=== PATIENT | male | born 1965 | race Caucasian/White ===

== ENCOUNTER 2021-11-30 22:44 | Inpatient (IN) | payer SELFPAY ==
[~2021-11-30] VITALS: Ht 185.4 cm; Wt 87.1 kg
[2021-11-30] MEDS ORDERED: SODIUM CHLORIDE 0.9% 1,000 ML IV ONE (23:30)
[2021-11-30 23:53] LABS: BASOPHILS % 1.1 % (0.0-2.0); EOSINOPHILS % 9.4 % (0.0-5.0); HEMATOCRIT. 39.7 % (42.0-52.0); HEMOGLOBIN. 13.3 g/dL (14.0-18.0); LYMPHOCYTES % 21.8 % (20.0-50.0); MEAN CORPUSCULAR HEMOGLOBIN 30.1 pg (28.0-32.0); MEAN CORPUSCULAR VOLUME 89.9 fL (80.0-94.0); MEAN PLATELET VOLUME 7.8 fl (7.4-10.4); MONOCYTES % 5.2 % (2.0-8.0); NEUTROPHILS % 62.5 % (40.0-76.0); PLATELET 623 x1000/uL (130-400); RED BLOOD CELL COUNT 4.41 mill/uL (4.7-6.1); RED CELL DISTRIBUTION WIDTH 14.6 % (11.6-14.6)
[2021-12-01 00:04] LABS: CHLORIDE 104 mEq/L (98-107)
[2021-12-01 00:15] LABS: ETHANOL BLOOD < 10 mg/dL
[2021-12-01] MEDS ORDERED: CEFTRIAXONE 1 G PREMIX 50 ML IV NR (00:45)
[2021-12-01] MEDS ORDERED: AZITHROMYCIN 500MG/250ML 250 ML IV NR (00:45)
[2021-12-01 01:43] LABS: *AMPHETAMINES SCREEN URINE NEGATIVE (NEGATIVE); *BARBITURATES SCREEN URINE NEGATIVE (NEGATIVE); *BENZODIAZEPINES SCREEN URINE NEGATIVE (NEGATIVE); *COCAINE SCREEN URINE NEGATIVE (NEGATIVE); CANNABINOID URINE SCREEN PRESUMTIVE POSITIVE (NEGATIVE); METHADONE URINE SCREEN NEGATIVE (NEGATIVE); OPIATES URINE SCREEN NEGATIVE (NEGATIVE); PHENCYCLIDINE URINE SCREEN NEGATIVE (NEGATIVE)
[2021-12-01] MEDS: HYDROCODONE/ACETAMINOPHEN 10/325MG TABLET PO PRN (06:40)
[2021-12-01 08:00] VITALS: BP 87/64
[2021-12-01 10:13] VITALS: BP 87/51
[2021-12-01] MEDS ORDERED: CEFTRIAXONE 1 G PREMIX 50 ML IV SCH (11:15)
[2021-12-01] MEDS ORDERED: MAGNESIUM/ALUMINUM HYDROXIDE/SIMETHICONE 30ML UDC PO PRN (11:15)
[2021-12-01] MEDS ORDERED: ONDANSETRON HCL 4MG/2ML INJ IV PRN (11:15)
[2021-12-01] MEDS ORDERED: DOCUSATE SODIUM 100MG CAPSULE PO PRN (11:15)
[2021-12-01] MEDS ORDERED: ACETAMINOPHEN 325MG TABLET PO PRN (11:15)
[2021-12-01] MEDS: ENOXAPARIN 40MG/0.4ML SYR SUBCUT SCH (11:52)
[2021-12-01 12:00] VITALS: BP 112/52
[2021-12-01] MEDS: SODIUM CHLORIDE 0.9% 1,000 ML IV SCH ×2 (12:00→20:11)
[2021-12-01] MEDS: HYDROCODONE/ACETAMINOPHEN 5/325MG TABLET PO PRN (14:10)
[2021-12-01 16:00] VITALS: BP_SYST 104; BP_SYST 110; BP_DIAS 67; BP_DIAS 68; BP_DIAS 75
[2021-12-01] MEDS ORDERED: ARIP2TAB3 MT (19:03)
[2021-12-01 20:00] VITALS: BP 114/90
[2021-12-01] MEDS: CEFTRIAXONE 1,000 MG in DEXTROSE 5% WATER 50 ML IV SCH (20:11)
[2021-12-01] MEDS ORDERED: AZITHROMYCIN 500 MG in DEXT 5% WATER 250 ML IV SCH (22:00)
[2021-12-02] VITALS: BP 104/65
[2021-12-02] MEDS: HYDROCODONE/ACETAMINOPHEN 10/325MG TABLET PO PRN ×4 (01:49→23:23)
[2021-12-02 04:00] VITALS: BP 123/86
[2021-12-02 07:12] LABS: BASOPHILS % 1.1 % (0.0-2.0); EOSINOPHILS % 7.1 % (0.0-5.0); HEMATOCRIT. 41.3 % (42.0-52.0); HEMOGLOBIN. 13.9 g/dL (14.0-18.0); LYMPHOCYTES % 22.8 % (20.0-50.0); MEAN CORPUSCULAR HEMOGLOBIN 30.1 pg (28.0-32.0); MEAN CORPUSCULAR VOLUME 89.6 fL (80.0-94.0); MEAN PLATELET VOLUME 8.3 fl (7.4-10.4); MONOCYTES % 7.7 % (2.0-8.0); NEUTROPHILS % 61.3 % (40.0-76.0); PLATELET 683 x1000/uL (130-400); RED BLOOD CELL COUNT 4.61 mill/uL (4.7-6.1); RED CELL DISTRIBUTION WIDTH 14.6 % (11.6-14.6)
[2021-12-02 07:23] LABS: CHLORIDE 101 mEq/L (98-107)
[2021-12-02 07:38] LABS: HDL CHOLESTEROL 45 mg/dL (40-59); LDL CHOLESTEROL 82 mg/dL (5-100); PHOSPHORUS 3.6 mg/dL (2.5-4.9); T4 FREE 0.86 ng/dL (0.76-1.46)
[2021-12-02 08:00] VITALS: BP 110/85
[2021-12-02] MEDS: PANTOPRAZOLE SODIUM 40 MG/VIAL IV SCH (09:00)
[2021-12-02 10:50] LABS: CLARITY URINE CLEAR (CLEAR); COLOR URINE YELLOW (YELLOW); KETONES URINE NEGATIVE (NEGATIVE); LEUKOCYTE ESTERASE URINE NEGATIVE (NEGATIVE); NITRITE URINE NEGATIVE (NEGATIVE); OCCULT BLOOD URINE NEGATIVE (NEGATIVE); PH URINE 7.5 (4.5-8.0); PROTEIN URINE NEGATIVE (NEGATIVE); SPECIFIC GRAVITY URINE 1.017 (1.005-1.030); UROBILINOGEN URINE 0.2 E.U./dL (0.2-1.0)
[2021-12-02 12:00] VITALS: BP 115/74
[2021-12-02] MEDS: ENOXAPARIN 40MG/0.4ML SYR SUBCUT SCH (12:19)
[2021-12-02] MEDS: SODIUM CHLORIDE 0.9% 1,000 ML IV SCH (12:21)
[2021-12-02] MEDS ORDERED: IOHEXOL-350 100 ML BOTTLE ONE (12:29)
[2021-12-02 16:00] VITALS: BP 124/80
[2021-12-02 20:00] VITALS: BP 123/73
[2021-12-02] MEDS ORDERED: NALOXONE HCL 0.4MG/ML VIAL IV PRN (20:00)
[2021-12-02] MEDS: CEFTRIAXONE 1,000 MG in DEXTROSE 5% WATER 50 ML IV SCH (21:51)
[2021-12-02] MEDS: AZITHROMYCIN 500 MG TABLET PO SCH (21:52)
[2021-12-03] VITALS: BP 117/70
[2021-12-03] MEDS: SODIUM CHLORIDE 0.9% 1,000 ML IV SCH ×2 (00:45→12:28)
[2021-12-03 04:00] VITALS: BP 115/73
[2021-12-03] MEDS: HYDROCODONE/ACETAMINOPHEN 10/325MG TABLET PO PRN ×3 (06:25→20:32)
[2021-12-03 06:30] LABS: HEMATOCRIT. 40.7 % (42.0-52.0); HEMOGLOBIN. 14.2 g/dL (14.0-18.0); LYMPHOCYTES % 28.3 % (20.0-50.0); MEAN CORPUSCULAR HEMOGLOBIN 30.8 pg (28.0-32.0); MEAN CORPUSCULAR VOLUME 88.2 fL (80.0-94.0); MEAN PLATELET VOLUME 8.2 fl (7.4-10.4); MONOCYTES % 8.9 % (2.0-8.0); NEUTROPHILS % 54.8 % (40.0-76.0); PLATELET 649 x1000/uL (130-400); RED BLOOD CELL COUNT 4.61 mill/uL (4.7-6.1); RED CELL DISTRIBUTION WIDTH 14.4 % (11.6-14.6)
[2021-12-03 06:39] LABS: CHLORIDE 102 mEq/L (98-107)
[2021-12-03 08:00] VITALS: BP 113/68
[2021-12-03] MEDS: PANTOPRAZOLE SODIUM 40 MG/VIAL IV SCH (08:24)
[2021-12-03] MEDS ORDERED: IOHEXOL-350 100 ML BOTTLE ONE (09:03)
[2021-12-03] MEDS ORDERED: LEVO500T90 MT (11:50)
[2021-12-03 12:00] VITALS: BP 114/72
[2021-12-03] MEDS: ENOXAPARIN 40MG/0.4ML SYR SUBCUT SCH (12:19)
[2021-12-03] MEDS: HYDROCODONE/ACETAMINOPHEN 5/325MG TABLET PO PRN (15:13)
[2021-12-03 15:51] VITALS: BP 119/74
[2021-12-03 20:00] VITALS: BP 119/78
[2021-12-03] MEDS ORDERED: DIPHENHYDRAMINE 50MG CAPSULE PO PRN (20:15)
[2021-12-03] MEDS: AZITHROMYCIN 500 MG TABLET PO SCH (20:31)
[2021-12-03] MEDS: CEFTRIAXONE 1,000 MG in DEXTROSE 5% WATER 50 ML IV SCH (20:31)
[2021-12-04] VITALS: BP 120/69
[2021-12-04] MEDS: SODIUM CHLORIDE 0.9% 1,000 ML IV SCH (01:11)
[2021-12-04] MEDS: HYDROCODONE/ACETAMINOPHEN 10/325MG TABLET PO PRN (02:38)
[2021-12-04 04:00] VITALS: BP 125/79
[2021-12-04] MEDS: HYDROCODONE/ACETAMINOPHEN 5/325MG TABLET PO PRN (06:39)
[2021-12-04 07:52] VITALS: BP 121/72
[2021-12-04] MEDS: PANTOPRAZOLE SODIUM 40 MG/VIAL IV SCH (08:52)
[2021-12-04 10:38] VITALS: BP 121/72
== END 2021-12-04 11:20 | disposition home or self-care (01) | DRG 48 ==
LOC: ER 22:44 → 6WST 12-01 02:36 → EDBEDREQ 12-01 02:41 → EDBEDREQTM 12-01 02:41 → ENRESERV 12-01 08:22
PROVIDERS: ADMIT Internal Medicine; ATTEND Internal Medicine
DX: G90.8 Other disorders of autonomic nervous system (principal); J18.9 Pneumonia, unspecified organism; I95.9 Hypotension, unspecified; L30.9 Dermatitis, unspecified; R79.89 Other specified abnormal findings of blood chemistry; Z20.822 Contact with and (suspected) exposure to COVID-19
CPT/HCPCS: 36415; 71045; 71275; 80048; 80053; 80061; 80076; 80305; 80320; 81003; 83605; 83735; 84100; 84145; 84439; 84443; 84484; 85025; 85379; 87426; 93005; 93306; 93970; 99291; C9113; C9803; J0456; J0696; J1650; J7030; J7060; Q0163; Q9967; G0480